=== PATIENT | male | born 1965 | race Caucasian/White ===

== ENCOUNTER 2019-12-24 11:20 | Outpatient (CLI) | payer MEDICARE, MEDICAID, SELFPAY ==
--- NOTE | 2019-12-24 | ECG_ITS ---
Measurements Intervals [place] Rate: 68 P: 54 IN: 148 QRS: 75 QRSD: 78 T: 54 QT: 336 QTc: 358 Interpretive Statements SINUS RHYTHM NORMAL ECG Electronically Signed On 12-24-2019 12:26:38 CDT by Chele Ochoa D.O.
[2019-12-24 12:15] LABS: Albumin Level 4.3 g/dL (3.5-5.1); Estimated Glomerular Filt Rate > 60
== END 2019-12-24 11:21 | disposition home or self-care (01) ==
PROVIDERS: Visit Provider Orthopaedic Surgery
DX: Z01.818 Encounter for other preprocedural examination (principal); M17.12 Unilateral primary osteoarthritis, left knee
CPT/HCPCS: 36415; 82040; 82565; 93005

== ENCOUNTER 2020-01-08 13:52 | Outpatient (CLI) | payer MEDICARE, MEDICAID, SELFPAY ==
[2020-01-08 15:07] LABS: Basophils Percent Auto 0.4 % (0.2-1.2); Eosinophils Absolute Auto 0.1 K/mm3 (0-0.3); Eosinophils Percent Auto 1.6 % (0-4.4); Hematocrit 41.6 % (42.0-52.0); Hemoglobin 14.1 g/dL (14.0-18.0); Immature Granulocyte Absolute 0.02 K/mm3 (0.00-0.031); Immature Granulocyte Percent A 0.3 % (0-0.5); Lymphocytes Absolute Auto 2.09 K/mm3 (0.9-3.2); Lymphocytes Percent Auto 31.2 % (18.3-44.2); Mean Corpuscular HGB Conc 33.9 g/dl (32-36); Mean Corpuscular Hemoglobin 31.2 pg (26-34); Mean Platelet Volume 8.7 fl (7.4-10.4); Monocytes Absolute Auto 0.5 K/mm3 (0.1-0.6); Neutrophils Percent Auto 59.5 % (45.5-73.1); Platelet Count Result 215 k/mm3 (150-375); Red Blood Count 4.52 M/mm3 (4.6-6.20); Red Cell Distribution Width 13.1 % (11.5-14.5); White Blood Count 6.7 K/mm3 (4.5-10.0)
[2020-01-08 15:08] LABS: Urine Cotinine NEGATIVE
[2020-01-08 15:09] LABS: Glucose 133 mg/dL (75-110)
== END 2020-01-08 13:53 | disposition home or self-care (01) ==
PROVIDERS: Visit Provider Orthopaedic Surgery
DX: M17.12 Unilateral primary osteoarthritis, left knee (principal); Z01.812 Encounter for preprocedural laboratory examination
CPT/HCPCS: 36415; 80307; 82947; 83036; 85025; 87081

== ENCOUNTER 2020-01-29 00:52 | Outpatient (CLI) | payer MEDICARE, MEDICAID, SELFPAY ==
[2020-01-29 19:16] LABS: SARS-CoV-2 RNA PCR Negative
== END 2020-01-29 00:53 | disposition home or self-care (01) ==
LOC: ANHCOVIDDT 00:54
PROVIDERS: Visit Provider Orthopaedic Surgery
DX: Z01.812 Encounter for preprocedural laboratory examination (principal); Z11.59 Encounter for screening for other viral diseases
CPT/HCPCS: 87635; C9803; U0003

== ENCOUNTER 2020-01-31 00:19 | Day surgery (SDC) | payer MEDICARE, MEDICAID, SELFPAY ==
[2020-01-08 14:49] VITALS: BP 143/91; PULSE 82; RESP 18; TEMP 36.8; O2SAT 97; BMI 34.9
[2020-01-08 15:05] VITALS: BMI 34.9
[2020-01-31] VITALS (14 sets, daily range): BP systolic 106–125; BP diastolic 59–77; PULSE 75–94; RESP 12–16; TEMP 36.1–36.6; O2SAT 93–100
--- NOTE | ~2020-01-31 | XR_ITS ---
EXAMINATION: XR knee LT 2V DATE: 01/31/2020 10:05 INDICATION: Postoperative evaluation following left total knee arthroplasty. TECHNIQUE: Anteroposterior and lateral views of the left knee were obtained. COMPARISON: None. FINDINGS: Left total knee arthroplasty with patellar resurfacing appears well seated and in near anatomic align ment. No fractures identified. Expected postoperative subcutaneous and intra-articular gas. IMPRESSION: 1. Left total knee arthroplasty, negative for postoperative purposes. Reviewed, dictated and finalized at location A.
--- NOTE | 2020-01-31 06:42 | WPDANESEPPF ---
Anes - Initial Pre Proc Eval Procedure: Operation Date: 01/31/20 07:30 Proposed Procedures p Left Total Knee Arthroplasty - Flako Vogel MD Date/Time: 01/31/20 06:42 Surgeon: Flako Vogel MD Pre Op Diagnosis: Left Knee Osteoarthritis Patient Data Age: 54 Gender: M Height: 5 ft 10 in Weight: 110.4 kg Last Vital Signs Temp 36.8 C 01/08/20 14:49 Pulse 82 01/08/20 14:49 Resp 18 01/08/20 14:49 BP 143/91 H 01/08/20 14:49 Pulse Ox 97 01/08/20 14:49 Allergies Allergy/AdvReac Type Severity Reaction Status Date / Time Penicillins Allergy Intermediate HIVES Verified 01/28/20 09:22 albuterol AdvReac Severe DIFFICULTY Verified 01/28/20 09:22 BREATHING MEPERIDINE HCL Allergy Intermediate HIVES Uncoded 01/08/20 14:39 OXYCODONE HCL Allergy Intermediate HIVES Uncoded 01/08/20 14:39 Home Medications Medication Instructions Recorded Confirmed Type meloxicam 15 mg tablet 15 mg PO DAILY 12/24/19 01/28/20 History aspirin 81 mg PO DAILY 01/08/20 01/28/20 History atorvastatin 10 mg PO DAILY 01/08/20 01/28/20 History cetirizine [Zyrtec] 10 mg PO DAILY 01/08/20 01/28/20 History cyclobenzaprine 10 mg PO HS PRN 01/08/20 01/28/20 History diazepam 5 mg PO DAILY 01/08/20 01/28/20 History hydrocodone-acetaminophen [[place]] 1 tablet PO BID 01/08/20 01/28/20 History ipratropium bromide [Atrovent HFA] 2 puff INHALATION PRN PRN 01/08/20 01/28/20 History lisinopril 20 mg PO DAILY 01/08/20 01/28/20 History montelukast 10 mg PO DAILY 01/08/20 01/28/20 History sertraline 100 mg PO DAILY 01/08/20 01/28/20 History sumatriptan succinate 50 mg PO ONCE 01/08/20 01/28/20 History Patient hx anesthesia problems: none Family hx anesthesia problems: none PMFSH Past Medical History Medical History (Updated 01/31/20 @ 06:43 by Leon Cortez MD) Hyperlipidemia Hypertension JOSE (obstructive sleep apnea) Osteoarthritis of left knee Reactive airway disease Trigger finger of left hand Trigger finger, right middle finger Surgical History Surgical History History of arthroscopy of right knee (~12/17/11) Chondroplasty & Medial Plica Excision History of arthroscopy of shoulder (~07/28/10) SLAP Repair History of right knee joint replacement (~12/05/18) Social History Social History Smoking status: Former smoker Alcohol intake: never Gender identity (if verbalized by the patient): Male Anes - Eval Final PreProcedure Day of Procedure 01/31/20 06:42 Patient weight: obese Heart: regular rate and rhythm Lungs: decreased breath sounds Airway: Mallampati scale class II Neurological: alert and oriented Last oral intake: >/= 8 hours ASA classification: III Emergent: no Anesthetic plan: proceed Anesthesia type and monitoring: general LMA and standard monitoring Informed Consent: The patient's anesthetic plan and its attendant risks and benefits were discussed with the patient/family/POA. Questions were solicited and answers provided to the satisfaction of the patient/family/POA.
[2020-01-31] MEDS: ACETAMINOPHEN 500 MG TABLET 1000 MG PO (06:45)
[2020-01-31] MEDS: LACTATED RINGERS 1,000 ML 30 ML IV CONT ×3 (06:50→10:36)
[2020-01-31] MEDS: TRANEXAMIC ACID 1,000MG/ISO100 1,000 MG/100 ML BAG 200 MG IVPB (06:50)
--- NOTE | 2020-01-31 07:12 | WPDHPUPDATE1 ---
History and Physical Update Update Date/Time: 01/31/20 07:12 History and Physical has been reviewed, including an updated exam of the patient. There are NO changes in the patient's condition. Risks, benefits, and alternatives have been discussed and questions answered. Patient agrees to proceed with procedure.
[2020-01-31] MEDS: KETOROLAC 15 MG/ML VIAL (*BKC) IV PUSH (07:25)
--- NOTE | 2020-01-31 07:25 | WPDANESPNB ---
Anes - Peripheral Nerve Block Date/Time: 01/31/20 07:25 I have discussed with the patient/family/POA the placement of a peripheral nerve block for post-operative pain management, including associated risks, benefits, complications, and side effects. Alternative methods of post-operative analgesia were detailed. Questions were solicited and answers provided to the satisfaction of the patient/family/POA. Time-Out: A pre-procedural Time-Out was completed immediately before starting the procedure and confirmed: Patient Identification, Site, Procedure, Patient Position and the Availability of Requisite Equipment. Clinical Indications: Acute post-operative pain management requested by the operative surgeon. Nerve Block Insertion Note Anes-nerve block: adductor canal left Patient position: supine Skin prep: chlorhexidine Needle: 22 gauge, stimulating, insulated echogenic needle. Needle length: 80 mm Technique: ultrasound Technique comment: mid2mg [id number] Injectate: bupivacaine 0.5% with epi 5 mcg/ml (30ml) and dexamethasone (mg) (4) Observations: tolerated well Complications: none Procedure start time:: 717 Procedure end time:: 722
[2020-01-31] MEDS: CLINDAMYCIN 900 MG/NS 50 ML 900 MG/50 ML PIGGYBACK 50 MG IVPB (07:28)
[2020-01-31] MEDS: ceFAZolin SODIUM 1 GM VIAL 2 GM IV PUSH (09:18)
--- NOTE | 2020-01-31 10:11 | PM.PROC ---
Procedure Note - Detailed Date of procedure: 01/31/20 Pre-op diagnosis: Left Knee Osteoarthritis Post-op diagnosis: same Procedure performed: Total knee arthroplasty, left Implants: Michele Triathlon size 6 posterior stabilized press-fit femur, size 7 cemented low-profile tibia, 13mm polyethylene insert, 38mm asymmetric metal backed tritanium patellar component. Anesthesia: GETA and regional (subsartorial nerve block) Surgeon: Flako Vogel MD Well Drill Operator Rotary Drill: Marcia Clement PA-C Estimated blood loss (mL): 100 Drains: No Complications: None Condition: stable Disposition: PACU Findings: OPERATIVE DETAILS: The patient was given a nerve block preoperatively, and then brought to the operating room. A general anesthetic was administered. The leg was prepped and draped in the usual sterile fashion. The limb was elevated and the tourniquet inflated to 300 mmHg during initial exposure. A longitudinal incision was created along the medial border of the patella and patellar tendon, and a minimally invasive optimized mid-vastus approach to the knee was performed. A large medial release was taken. The knee was then flexed. The osteophytes were carefully removed. The intramedullary guide was placed in the femoral canal. The distal femoral resection was then taken with the oscillating saw. The collateral ligaments were carefully protected. The tibia was carefully exposed. The jig was applied, and the proximal tibia was resected according to preoperative plan. The knee was balanced in extension. Appropriate releases were taken where needed. The anterior cruciate ligament and meniscal remnants were removed. The posterior cruciate ligament was preserved initially, but then later released to facilitate gap balancing. The patella was measured. Patellar resection was carried out with the oscillating saw. The lug holes drilled. The femur was sized and rotation assessed using a combination of gap balancing, posterior referencing, and the AP axis. 4? external rotation improved the flexion gap balance. The 4 in 1 cutting block was used to finish the femoral cuts after equal gaps were assured. The box cut was taken, and the lug holes were drilled. The osteophytes were carefully removed from the back of the knee. The knee was copiously irrigated with antibiotic solution periodically throughout the procedure. The meniscal remnants were removed. The spacer block was used to confirm equal flexion and extension gaps. Further releases were performed as needed. the medial gap remains slightly tight. It was elected to move up to the 13 mm polyethylene. A slight needle release was performed at the MCL which improved the balancing very nicely. The tibia was sized and broached. The bony surfaces were prepared for cementing with pulsatile lavage. The real tibial component was cemented into position followed by press fitting the femoral component. Excess cement was carefully removed. The patella component was press-fit. Patellar tracking was carefully assessed. No additional releases were required. The wound was closed with #1 Vycril suture, #2 Quill suture, 0-Quill suture, and 2-0 Quill suture followed by Steri-Strips. A sterile bulky dressing was applied. Meticulous hemostasis was maintained throughout the procedure. The [place] device was used.There were no complications. The patient was extubated and brought to the recovery room in stable condition after the application of sterile dressing with Florin bandage.
[2020-01-31] MEDS: ONDANSETRON INJ 4 MG/2 ML VIAL IV PUSH (10:20)
--- NOTE | 2020-01-31 11:16 | PC.NURSE ---
Returned from OR per bed. Patient oriented to room. Report received from KUMAR Cassidy.
[2020-01-31] MEDS: SODIUM CHLORIDE 0.9% IV 1,000 ML 125 ML IV CONT (11:56)
--- NOTE | 2020-01-31 13:48 | PCPTNOTE ---
Attempted to see pt for PT evaluation. Pt states he's had no pain medication and unwilling to work with therapy secondary to pain. RN notified and states she's working on getting pain medication switched due to allergy. Will try again later this this PM.
[2020-01-31] MEDS: CYCLOBENZAPRINE HCL 10 MG TABLET PO (14:16)
[2020-01-31] MEDS: DOCUSATE SODIUM 100 MG CAPSULE PO (16:43)
--- NOTE | 2020-01-31 16:57 | PC.NURSE ---
Patient refuses to use the incentive spirometer. He states that he does not want to be charged for it, so he would not allow respiratory to bring the incentive spirometer in.
--- NOTE | 2020-01-31 17:03 | PCRCNOTE ---
Went to instruct on IS, pt refused and did not want in his room.
[2020-01-31] MEDS: ASPIRIN 325 MG ENTERIC TABLET PO (20:55)
[2020-02-01 02:00] VITALS: BP 121/66; PULSE 64; RESP 16; TEMP 36.7; O2SAT 97
[2020-02-01 05:36] LABS: Basophils Percent Auto 0.2 % (0.2-1.2); Eosinophils Percent Auto 0.1 % (0-4.4); Hematocrit 36.8 % (42.0-52.0); Hemoglobin 12.1 g/dL (14.0-18.0); Immature Granulocyte Absolute 0.04 K/mm3 (0.00-0.031); Immature Granulocyte Percent A 0.3 % (0-0.5); Lymphocytes Absolute Auto 2.06 K/mm3 (0.9-3.2); Lymphocytes Percent Auto 15.2 % (18.3-44.2); Mean Corpuscular HGB Conc 32.9 g/dl (32-36); Mean Corpuscular Hemoglobin 30.6 pg (26-34); Mean Corpuscular Volume 92.9 fl (80-100); Mean Platelet Volume 8.8 fl (7.4-10.4); Monocytes Percent Auto 7.5 % (2.6-8.5); Neutrophils Absolute Auto 10.4 K/mm3 (1.3-6.7); Neutrophils Percent Auto 76.7 % (45.5-73.1); Platelet Count Result 199 k/mm3 (150-375); Red Blood Count 3.96 M/mm3 (4.6-6.20); Red Cell Distribution Width 12.7 % (11.5-14.5); White Blood Count 13.6 K/mm3 (4.5-10.0)
[2020-02-01 05:52] LABS: Blood Urea Nitrogen 22 mg/dL (9-20); Calcium 8.8 mg/dL (8.4-10.2); Carbon Dioxide 24 mmol/L (22-30); Chloride 107 mmol/L (98-107); Estimated CRCL calculation 104 ml/min; Estimated Glomerular Filt Rate > 60; Glucose 102 mg/dL (75-110); Potassium 4.2 mmol/L (3.4-5.0); Sodium 136 mmol/L (137-145)
[2020-02-01 06:36] VITALS: BP 125/72; PULSE 79; RESP 16; TEMP 36.1; O2SAT 100
[2020-02-01] MEDS: HYDROmorphone HCL 2 MG/ML VIAL 1 MG IV PUSH (08:14)
--- NOTE | 2020-02-01 08:21 | P.PNAN_ITS ---
Anes - Prog Note Post-Op Date/Time: 02/01/20 08:21 Cardiovascular status: normal Respiratory status: normal Airway patency: baseline Mental status: baseline Post-Op hydration status: normal Vital Signs: Last Vital Signs Temp 36.1 C L 02/01/20 06:36 Pulse 79 02/01/20 06:36 Resp 16 02/01/20 06:36 BP 125/72 02/01/20 06:36 Pulse Ox 100 02/01/20 06:36 I/O: Intake & Output 01/31/20 02/01/20 02/01/20 23:59 07:59 15:59 Intake Total 2140 450 Output Total 250 950 Balance 1890 -500 Laboratory Tests 02/01/20 05:26 02/01/20 05:26 02/01/20 02/01/20 05:26 05:26 WBC 13.6 H RBC 3.96 L Hgb 12.1 L Hct 36.8 L MCV 92.9 MCH 30.6 MCHC 32.9 RDW 12.7 Plt Count 199 MPV 8.8 Immature Gran % (Auto) 0.3 Neut % (Auto) 76.7 H Lymph % (Auto) 15.2 L [place] % (Auto) 7.5 Eos % (Auto) 0.1 Baso % (Auto) 0.2 Lymph # (Auto) 2.06 [place] # (Auto) 1.0 H Eos # (Auto) 0.0 Baso # (Auto) 0.0 Abs Immat Gran (auto) 0.04 H Absolute Neuts (auto) 10.4 H Absolute Nucleated RBC 0.0 Nucleated RBC % 0.0 Sodium 136 L Potassium 4.2 Chloride 107 Carbon Dioxide 24 BUN 22 H Creatinine 0.90 Estim Creat Clear Calc 104 Estimated GFR > 60 Glucose 102 Calcium 8.8 Post-procedural complaints: none Patient Feedback: Patient satisfied with anesthetic care.
[2020-02-01] MEDS: predniSONE 20 MG TABLET 40 MG PO (09:38)
[2020-02-01] MEDS: SERTRALINE HCL 50 MG TABLET 100 MG PO (09:38)
[2020-02-01] MEDS: ATORVASTATIN 10 MG TABLET PO (09:38)
[2020-02-01] MEDS: lisinopriL 20 MG TABLET PO (09:38)
[2020-02-01] MEDS: ASPIRIN 325 MG ENTERIC TABLET PO (09:38)
[2020-02-01] MEDS: LORATADINE 10 MG TABLET PO (09:38)
[2020-02-01] MEDS: diazePAM 5 MG TABLET PO (09:39)
[2020-02-01] MEDS: MONTELUKAST SODIUM 10 MG TABLET PO (09:39)
[2020-02-01] MEDS: DOCUSATE SODIUM 100 MG CAPSULE PO (09:39)
[2020-02-01] MEDS: MELOXICAM 7.5 MG TABLET 15 MG PO (09:39)
[2020-02-01 10:10] VITALS: BP 132/95; PULSE 98; RESP 18; TEMP 36.4; O2SAT 97
--- NOTE | 2020-02-01 11:46 | P.DS_ITS ---
DS: Admitting Diagnosis Admitting Diagnosis Admitting Diagnosis: Unilateral primary osteoarthritis, left knee DS: Discharge Diagnosis Discharge Diagnosis (1) Status post total knee replacement, left: Code(s): Z96.652 - Presence of left artificial knee joint Status: Acute DS: Summary Hospital Course Reason for hospitalization: Total knee arthroplasty. Hospital Course: Tolerated surgery well. Progressed appropriately with therapy. Status at Discharge Functional status at discharge: uses cane/walker Time Spent with Patient Time attestation: Total time spent providing and/or coordinating discharge services: Exam Const: General: no acute distress Resp: Effort & Inspection: normal respiratory effort Skin: Other: Wound healing well. Mepilex dressing intact. No hematoma or drainage. Neuro: Motor exam (neuro): 5/5 motor strength present throughout Sensory Exam: normal sensation Psych: Mental Status: mental status grossly normal Speech and movement: Normal speech and movement present DS: Data Data Completed and Pending Labs on day of discharge: Labs from last 24 hours 02/01/20 02/01/20 05:26 05:26 WBC 13.6 H RBC 3.96 L Hgb 12.1 L Hct 36.8 L MCV 92.9 MCH 30.6 MCHC 32.9 RDW 12.7 Plt Count 199 MPV 8.8 Immature Gran % (Auto) 0.3 Neut % (Auto) 76.7 H Lymph % (Auto) 15.2 L [place] % (Auto) 7.5 Eos % (Auto) 0.1 Baso % (Auto) 0.2 Lymph # (Auto) 2.06 [place] # (Auto) 1.0 H Eos # (Auto) 0.0 Baso # (Auto) 0.0 Abs Immat Gran (auto) 0.04 H Absolute Neuts (auto) 10.4 H Absolute Nucleated RBC 0.0 Nucleated RBC % 0.0 Sodium 136 L Potassium 4.2 Chloride 107 Carbon Dioxide 24 BUN 22 H Creatinine 0.90 Estim Creat Clear Calc 104 Estimated GFR > 60 Glucose 102 Calcium 8.8 Discharge Plan Discharge Patient Disposition: Home, Self-Care Discharge Instructions: See instruction sheet. Patient Instructions: Antibiotic Form, Precautions after Total Joint Replacement Surgery (GEN), Blood Thinners (GEN) Follow-up/Referrals: Flako Vogel MD [Physician] - Discharge Medications: New oxycodone-acetaminophen 5-325 mg tablet 1 - 2 tablet PO Q4-6H MDD 8 tablets PRN (Reason: pain) Qty: 40 RF: 0 Continued meloxicam [Mobic] 15 mg tablet 15 mg PO DAILY RF: 0 cyclobenzaprine 10 mg Tablet 10 mg PO HS PRN (Reason: Restless Leg(S)) RF: 0 cetirizine [Zyrtec] 10 mg Tablet 10 mg PO DAILY RF: 0 atorvastatin 10 mg Tablet 10 mg PO DAILY RF: 0 lisinopril 20 mg Tablet 20 mg PO DAILY RF: 0 sertraline 100 mg Tablet 100 mg PO DAILY RF: 0 hydrocodone-acetaminophen [[place]] 10-325 mg Tablet 1 tablet PO BID RF: 0 aspirin 81 mg Tablet,Chewable 81 mg PO DAILY RF: 0 montelukast 10 mg Tablet 10 mg PO DAILY RF: 0 Atrovent HFA 17 mcg/actuation Hfa Aerosol Inhaler 2 puff INHALATION PRN PRN (Reason: Shortness Of Breath Or Wheezing) RF: 0 diazepam 5 mg Tablet 5 mg PO DAILY RF: 0 Quality VTE Prophylaxis VTE prophylaxis: mechanical ordered ([facility] goodman and [place])
== END 2020-02-01 13:00 | disposition home or self-care (01) ==
LOC: ANHSURGERY 05:53 → ANH2MED 11:23
PROVIDERS: Visit Provider Orthopaedic Surgery
PROC: (CPT 27447; principal; 2020-01-31 07:30)
DX: M17.12 Unilateral primary osteoarthritis, left knee (principal); G89.18 Other acute postprocedural pain; I10 Essential (primary) hypertension; E78.5 Hyperlipidemia, unspecified; G47.33 Obstructive sleep apnea (adult) (pediatric); Z79.82 Long term (current) use of aspirin; Z87.891 Personal history of nicotine dependence; E66.9 Obesity, unspecified; Z68.34 Body mass index [BMI] 34.0-34.9, adult
CPT/HCPCS: 27447; 64447; 36415; 73560; 80048; 85025; 86850; 86900; 86901; 97110; 97116; 97161; 97165; A9270; C1713; C1776; J0131; J0171; J0690; J1100; J1170; J1885; J2250; J2270; J2405; J2704; J2795; J3010; J7030; J7120; J7512

== ENCOUNTER 2020-09-09 01:40 | Day surgery (SDC) | payer MEDICARE, MEDICAID, SELFPAY ==
[2020-09-05 12:25] VITALS: BMI 34.7
--- NOTE | 2020-09-09 12:55 | P.OP_ITS ---
Procedure Note - Detailed Date of procedure: 09/09/20 Pre-op diagnosis: Trigger Finger Post-op diagnosis: same Procedure performed: 1. Trigger finger release, 3rd right. Description of procedure: 10 mL 1% lidocaine with epinephrine injected in the preoperative holding area. 30 minutes later the patient was brought to the operating room. The hand was prepped and draped in the usual sterile fashion. Transverse incision created at the A1 jesus. Careful blunt dissection brought down to the jesus which was released sharply with dissection scissors. The tendon was confirmed to move freely. The wound was closed with interrupted nylon suture. Sterile bulky dressing applied. Patient brought to the recovery room with no complications. Anesthesia: local Surgeon: Flako Vogel MD Braider Operator: Marcia Clement PA-C Estimated blood loss (mL): 0 Complications: No immediate complications Condition: stable Disposition: same day
[2020-09-09 13:16] VITALS: BP 120/78; PULSE 77; RESP 18; TEMP 36.3; O2SAT 99
--- NOTE | 2020-09-09 13:43 | PM.HPGS ---
History of Present Illness History of Present Illness Consent: Risks, benefits, and alternatives have been discussed and questions answered. Patient agrees to proceed with procedure. Chief complaint: Trigger Finger Narrative: Floyd Antoine is a 55 year old male complains of recurrent trigger finger, third finger right hand. Review of Systems Constitutional: Constitutional: Denies fever(s) ENT: Denies sore throat Cardiovascular: Cardiovascular: Denies dyspnea Respiratory: Respiratory: Denies cough and Denies dyspnea Musculoskeletal: Musculoskeletal: Reports as per [facility] Past Medical History Medical History Hyperlipidemia Hypertension JOSE (obstructive sleep apnea) Osteoarthritis of left knee Reactive airway disease Trigger finger of left hand Trigger finger, left middle finger Trigger finger, right middle finger Surgical History Surgical History History of arthroscopy of right knee (~12/17/11) Chondroplasty & Medial Plica Excision History of arthroscopy of shoulder (~07/28/10) SLAP Repair History of right knee joint replacement (~12/05/18) Status post total knee replacement, left Social History Social History Smoking packs per day: 1 Smoking cigarettes per day: 20.0 Years smoked: 15 Smoking pack-years: 15.00 Smoking status: Former smoker Tobacco type: cigarettes Smoking end date: 07/25/12 Alcohol intake: never Substance use: current Substance use type: marijuana Last use: 09/04/20 Living arrangements: other Gender identity (if verbalized by the patient): Male Spiritual care concerns: No Meds Home Medications and Allergies Home Medications Medication Instructions Recorded Confirmed Type meloxicam 15 mg tablet 15 mg PO DAILY 12/24/19 09/09/20 History Atrovent HFA 2 puff INHALATION PRN PRN 01/08/20 09/09/20 History atorvastatin 10 mg PO DAILY 01/08/20 09/09/20 History cetirizine [Zyrtec] 10 mg PO DAILY 01/08/20 09/09/20 History cyclobenzaprine 10 mg PO HS PRN 01/08/20 09/09/20 History diazepam 5 mg PO BID 01/08/20 09/09/20 History hydrocodone-acetaminophen [[place]] 1 tablet PO BID 01/08/20 09/09/20 History lisinopril 20 mg PO DAILY 01/08/20 09/09/20 History montelukast 10 mg PO DAILY 01/08/20 09/09/20 History sertraline 100 mg PO QAM 01/08/20 09/09/20 History aspirin [Adult Low Dose Aspirin] 81 mg PO DAILY 09/05/20 09/09/20 History multivitamin,[id number] 1 tablet PO DAILY 09/05/20 09/09/20 History [Complete Multivitamin] omega [id number]-fish oil [Fish Oil] 1 cap PO DAILY 09/05/20 09/09/20 History Allergies Allergy/AdvReac Type Severity Reaction Status Date / Time Penicillins Allergy Intermediate HIVES Verified 09/05/20 12:16 albuterol AdvReac Severe DIFFICULTY Verified 09/05/20 12:16 BREATHING MEPERIDINE HCL Allergy Intermediate HIVES Uncoded 09/05/20 12:16 Vital Signs Vital Signs - 24 hr 09/09/20 13:16 Temperature 36.3 C L Pulse Rate 77 Respiratory Rate 18 Blood Pressure 120/78 Pulse Oximetry 99 Exam Narrative: Exam Narrative: Triggering of the third finger, with tender nodule near the A1 jesus. Capillary refill brisk. Light touch sensation intact. Full ROM. Const: General: No acute distress Orientation/consciousness: patient oriented x3 Limitations: no limitations Skin: General skin exam: no rashes or lesions noted Trauma: no lacerations or abrasions Neuro: General: patient oriented x3 Speech: normal speech Sensory Exam: normal sensation Extrem: General: no clubbing, cyanosis or edema and no pedal edema Assessment and Plan Assessment and plan (1) Trigger finger, right middle finger: Code(s): M65.331 - Trigger finger, right middle finger Status: Acute Assessment and Plan: Symptomatic despite conservative treatment. Proceed with
--- NOTE | 2020-09-09 14:22 | WPDHPUPDATE1 ---
History and Physical Update Update Date/Time: 09/09/20 14:22 History and Physical has been reviewed, including an updated exam of the patient. There are NO changes in the patient's condition. Risks, benefits, and alternatives have been discussed and questions answered. Patient agrees to proceed with procedure.
[2020-09-09 14:30] VITALS: BP 129/73; PULSE 79; RESP 18; O2SAT 99
[2020-09-09 14:40] VITALS: BP 120/73; PULSE 78; RESP 18; O2SAT 99
[2020-09-09 14:52] VITALS: BP 128/78; PULSE 77; RESP 18; O2SAT 99
[2020-09-09 15:00] VITALS: BP 121/71; PULSE 77
--- NOTE | 2020-09-09 15:22 | SUR.PHASEII ---
Patient is dressed and ready to go. RN is just waiting for Dr. Vogel to enter discharge order.
== END 2020-09-09 15:38 | disposition home or self-care (01) ==
PROVIDERS: Visit Provider Orthopaedic Surgery
PROC: (CPT 26055; principal; 2020-09-09 14:00)
DX: M65.331 Trigger finger, right middle finger (principal); I10 Essential (primary) hypertension; E78.5 Hyperlipidemia, unspecified; G47.33 Obstructive sleep apnea (adult) (pediatric); J45.909 Unspecified asthma, uncomplicated; Z87.891 Personal history of nicotine dependence; F12.90 Cannabis use, unspecified, uncomplicated
CPT/HCPCS: 26055